=== PATIENT | male | born 1935 | race Caucasian/White ===

== ENCOUNTER → 2017-12-03 09:37 | Outpatient (CLI) | payer MEDICARE ==
[2014-12-09 12:59] VITALS: BMI 23.8
[~2017-12-03 09:37] MED LIST: ALDACTONE25 MG PO; ASPIRIN325 MG PO; BETAPACE 80 MG80 MG PO; CALTRATE-600600 MG PO; CORDARONE200 MG PO; ESTER-C 500 MG1 TAB PO; FOLIC ACID1 MG; HEMOCYTE PLUS1 CAP PO; LEVOTHROID25 MCG PO; LEVOTHROID75 MCG PO; LOPRESSOR25 MG PO; TEKTURNA300 MG PO; VITAMIN B-121000 MC3 OR; XARELTO15 MG PO; ZINC
== END | disposition home or self-care (01) ==
LOC: D.CT 09:37
DX: M54.5 Low back pain (principal)

== ENCOUNTER → 2018-11-01 11:53 | Outpatient (CLI) | payer MEDICARE ==
[2014-12-09 12:59] VITALS: BMI 23.8
== END | disposition home or self-care (01) ==
LOC: D.HCCARDIO 11:53
PROVIDERS: ATTEND Family Medicine
DX: I25.10 Atherosclerotic heart disease of native coronary artery without angina pectoris (principal)

== ENCOUNTER 2018-11-25 10:54 | Outpatient (CLI) | payer MEDICARE ==
[~2018-11-25] VITALS: Ht 185.4 cm; Wt 84.1 kg
--- NOTE | ~2018-11-25 | HEMODYNAMI ---
PATIENT:ZIGGY HORTA MEDICAL RECORD: [id number] : 33 LOCATION:[facility] ADMISSION DATE: 11/25/18 Generatedon:11/25/201814:03 Patient name: ZIGGY HORTA Patient #: [id number] SSN: : 1935 Date of study: 11/25/2018 Page: Of Hemodynamic Procedure Report Patient Data Patient Demographics Procedure consent was obtained First Name: ZIGGY Gender: Male Last Name: RULA : 1935 Middle Initial: KATTY Age: 82 year(s) Patient #: [id number] Race: Additional ID: [id number] Contact details [address]: [address] [place] [address] State: [place] City: [place] Zip code: [address] Past Medical History Allergies Allergen Reaction Date Comments Reported Codeine 12/09/2014 Admission Admission Data Admission Date: 11/25/2018 Admission Time: 10:54 Procedure Procedure Types Cath Procedure Diagnostic Procedure LHC LHC w/Coronaries w/Grafts Sedation Charges Moderate Sedation up to 15 minutes Procedure Description Procedure Date Procedure Date: 11/25/2018 Procedure Start Time: 13:40 Procedure End Time: 14:03 Procedure Staff Name Function Otto Rizo MD Performing Physician Santi Duff RN Nurse Nadeem Carrillo RT Monitor Sobeida Toribio RT Scrub Vinita Swan RN Clinical Laboratory Aides Teacher Ashley Nation RT Monitor Procedure Data Cath Procedure Fluoroscopy Diagnostic fluoroscopy Total fluoroscopy Time: 7.2 time: 7.2 min min Diagnostic fluoroscopy Total fluoroscopy dose: dose: 1088 mGy 1088 mGy Contrast Material Contrast Material Type Amount (ml) Isovue 300 95 Entry Location Entry Primary Successful Side Size Upsize Upsize Entry Closure Succes sful Closure Location (Fr) 1 (Fr) 2 (Fr) Remarks Device Remarks Femoral Right 5 Fr Exoseal artery Estimated blood loss: 5 ml Diagnostic catheters Device Type Used For End Catheter Placement DIAGNOSTIC JL 4.0 5Fr Left Coronary catheter ([id number]) Angiography DIAGNOSTIC AR MOD 5Fr Right Coronary Catheter ([id number]) Angiography DIAGNOSTIC AR MOD 5Fr SVG Angiography Catheter ([id number]) DIAGNOSTIC AL1 5Fr Right Coronary catheter ([id number]) Angiography DIAGNOSTIC IM 5Fr Internal mammary catheter ([id number]) arteriography DIAGNOSTIC Pigtail 5Fr Aortic Root catheter ([id number]) Angiography DIAGNOSTIC Pigtail 5Fr LV Angiography catheter ([id number]) Procedure Complications No complications Procedure Medications Medication Administration Route Dosage Oxygen etCO2 Nasal cannula 2 l/min Heparin Flush Bag added to field 2 bags (1000units/500ml NS) 0.9% NaCl I.V. 100 ml/hr Lidocaine 2% added to field 20 Versed I.V. 1 mg Fentanyl I.V. 50 mcg Versed I.V. 1 mg Fentanyl I.V. 50 mcg Hemodynamics Rest Heart Rate: 48 (bpm) Snapshots Pre Cath Intra NCS Post Cath Vital Signs Time Heart Resp SPO2 etCO2 NIBP (mmHg) Rhythm Pain Sedation Rate (ipm) (%) (mmHg) Status Level (bpm) 13:32:54 60 17 98 22 137/76(110) NSR 0 (11) 10(A) , No pain 13:37:02 59 14 99 21 136/78(115) NSR 0 (11) 10(A) , No pain 13:41:05 60 10 98 20 121/87(104) NSR 0 (11) 10(A) , No pain 13:45:09 61 13 96 1.5 104/74(83) NSR 0 (11) 9(A) , No pain 13:49:56 64 14 97 48.7 141/81(113) NSR 0 (11) 9(A) , No pain 13:56:31 64 14 96 52.5 142/93(113) NSR 0 (11) 9(A) , No pain 14:00:37 67 16 97 41.2 142/87(134) NSR 0 (11) 10(A) , No pain Medications Time Medication Route Dose Verified Delivered Reason Notes Effe ctiveness by by 13:32:45 Oxygen etCO2 2 Otto Santi Per Nasal l/min Darrius Duff RN physician cannula 13:32:55 Heparin Flush added 2 Otto Santi used for Bag to bags Darrius Duff linoleum tile floor layer (1000units/500ml field NS) 13:33:03 0.9% NaCl I.V. 100 Otto Santi Per ml/hr Darrius Duff RN physician 13:33:14 Lidocaine 2% added 20ml Otto Santi used for to vial Darrius Duff RN procedure field 13:38:39 Versed I.V. 1 mg Otto Vinita for Darrius Swan sedation RN 13:38:45 Fentanyl I.V. 50 Otto [place]init[place] for mcg Darrius Swan sedation RN 13:43:11 Versed I.V. 1 mg Otto Vinita for Darrius Swan sedation RN 13:43:18 Fentanyl I.V. 50 Otto [place]init[place] for mcg Darrius Swan sedation coil former Log Time Note 13:05:50 Sanit Duff RN sent for patient. Start room use. 13:23:51 Time tracking: Regular hours (M-F 7:00 - 5:00) 13:23:54 Plan of Care:Hemodynamics will remain stable., Cardiac rhythm will remain stable., Comfort level will be maintained., Respiratory function will remain adequate., Patient/ family verbilizes understanding of procedure., Procedure tolerated without complication., Recovers from procedure without complications.. 13:24:12 Patient received from Pre/Post Procedure Room to [facility] 2 Alert and oriented. Tansferred to table in Supine position. 13:24:13 Warm blankets applied, and alejandra hugger turned on for patient comfort. 13:24:13 Correct patient and procedure confirmed by team. 13:24:14 Signed procedure consent form obtained from patient. 13:24:15 ECG and BP/O2 sat monitors applied to patient. 13:31:45 Vital chart was started 13:32:45 Oxygen 2 l/min etCO2 Nasal cannula was administered by Santi Duff RN; Per physician; 13:32:55 Heparin Flush Bag (1000units/500ml NS) 2 bags added to field was administered by Santi Duff RN; used for procedure; 13:33:03 0.9% NaCl 100 ml/hr I.V. was administered by Santi Duff RN; Per physician; 13:33:14 Lidocaine 2% 20ml vial added to field was administered by Santi Duff RN; used for procedure; 13:35:33 Baseline sample Acquired. 13:35:38 Rhythm: sinus rhythm 13:35:40 Full Disclosure recording started 13:35:47 H&P Date Dictated: 11/12/2018 Within 30 days and on chart., H&P Addendum completed by physician on day of procedure. (MUST COMPLETE FOR ALL OUTPATIENTS). 13:35:49 Pre-procedure instructions explained to patient. 13:35:50 Pre-op teaching completed and patient verbalized understanding. 13:35:51 Family in waiting room. 13:35:53 Patient NPO since Midnight. 13:35:54 Is the patient allergic to Iodine/contrast media? Yes. 13:35:59 Is patient on blood thinner?No 13:36:00 Patient diabetic? No. 13:36:02 Previous problem with sedation/anesthesia? No ? 13:36:04 Snore? Yes 13:36:05 Sleep apnea? No 13:36:06 Deviated septum? No 13:36:07 Opens mouth fully? Yes 13:36:07 Sticks out tongue? Yes 13:36:10 Airway obstruction? No ? 13:36:18 Dentures? Yes IN 13:36:26 Pre procedure: right dorsailis pedis pulse 1+ Palpable, but thready & weak; easily obliterated 13:36:29 Patient pain scale 0/10 ?. 13:36:33 IV patent on arrival in left forearm with 0.9% NaCl at [facility]. 13:36:48 Lab results completed and on chart. 13:36:50 Right groin area was prepped with chlora-prep and draped in sterile fashion 13:36:51 Alarms reviewed by R. N. 13:36:52 Sharps counted by scrub and verified by R.N. 13:36:53 --------ALL STOP TIME OUT------ 13:36:54 Final Timeout: patient, procedure, and site verified with staff and physician. All members of the team are in agreement. 13:36:55 Right groin site verified by team. 13:36:59 Maximum allowable Isovue 300 dose 300ml. Physician notified. (300ml for normal creatinines. For patients with creatinine of 1.7 or higher multiply weight(kg) x 5 divided by creatinine.) 13:37:02 Fire Safety Assessment: A--An alcohol-based skin anteseptic being used preoperatively., C--Open oxygen or nitrous oxide is being used., D--An ESU, laser, or fiber-optic light is being used. 13:37:04 Physical assessment completed. ASA score P 2 - A patient with mild systemic disease as per Otto Rizo MD. 13:37:07 Sedation plan: IV Moderate Sedation Medication:Versed, Fentanyl 13:37:59 Use device set Femoral Dx 13:38:00 Nadeem Carrillo RT(R) was relieved by Ashley Nation RT(R) as monitoring person 13:38:00 ACIST Syringe (12052) opened to sterile field. 13:38:00 Bag Decanter (2002S) opened to sterile field. 13:38:00 Medline Cath Pack ([id number]) opened to sterile field. 13:38:01 DIAGNOSTIC WIRE .035 260cm J wire (860589) opened to sterile field. 13:38:02 ACIST Hand Control (46623) opened to sterile field. 13:38:03 ACIST Manifold (86893) opened to sterile field. 13:38:04 Tegaderm 4 x 4 (1626W) opened to sterile field. 13:38:05 SHEATH 5FR [place] (CRU111) opened to sterile field. 13:38:39 Versed 1 mg I.V. was administered by Vinita Swan RN; for sedation; 13:38:45 Fentanyl 50 mcg I.V. was administered by Vinita Swan RN; for sedation; 13:40:54 Procedure started. 13:40:57 Local anesthetic to right femoral artery with Lidocaine 2% by Otto Rizo MD.INITIAL ACCESS ONLY 13:41:25 A 5 Fr sheath was inserted into the Right Femoral artery 13:43:11 Versed 1 mg I.V. was administered by Vinita Swan RN; for sedation; 13:43:18 Fentanyl 50 mcg I.V. was administered by Vinita Swan RN; for sedation; 13:45:25 A DIAGNOSTIC JL 4.0 5Fr catheter ([id number]) was advanced over the wire and used for Left Coronary Angiography. 13:46:15 Catheter removed. 13:46:51 A DIAGNOSTIC AR MOD 5Fr Catheter (128255U) was advanced over the wire and used for Right Coronary Angiography. UNABLE TO CANNULATE 13:49:16 A DIAGNOSTIC AR MOD 5Fr Catheter (633441L) was advanced over the wire and used for SVG Angiography.TO CIRC 13:49:45 Catheter removed. 13:51:26 A DIAGNOSTIC AL1 5Fr catheter (297584P) was advanced over the wire and used for Right Coronary Angiography. 13:53:04 Catheter removed. 13:54:23 A DIAGNOSTIC IM 5Fr catheter (431287S) was advanced over the wire and used for Internal mammary arteriography.TO LAD 13:55:20 Catheter removed. 13:55:32 A DIAGNOSTIC Pigtail 5Fr catheter (267528V) was advanced over the wire and used for Aortic Root Angiography. 13:57:15 Zero performed for pressure channel P1 13:59:09 A DIAGNOSTIC Pigtail 5Fr catheter (457639Y) was advanced over the wire and used for LV Angiography.UNABLE TO CROSS VALVE 13:59:14 Catheter removed. 13:59:16 EXOSEAL 5Fr (EX500) opened to sterile field. 13:59:43 Sheath removed intact; hemostasis achieved with Exoseal to the Right Femoral artery. 13:59:45 Procedure ended.(Physican Out) 13:59:56 Fluoroscopy time 07.20 minutes. 14:00:00 Flurop Dose total: 1088 14:00:00 Fluoroscopy dose: 1088 mGy 14:00:04 Contrast amount:Isovue 300 95ml. 14:00:05 Sharps counted by scrub and verified by R.N. 14:00:07 Insertion/operative site no bleeding no hematoma. 14:00:10 Post-op/insertion site Right Femoral artery dressed using a 4 x 4 and Tegaderm. 14:00:13 Post right femoral artery:stable, clean and dry 14:00:14 Post Procedure Pulses reassessed and unchanged 14:00:19 Post-procedure physical assessment completed. ASA score P 2 - A patient with mild systemic disease as per Otto Rizo MD. 14:00:21 Post procedure rhythm: unchanged. 14:00:23 Estimated blood loss: 5 ml 14:00:24 Post procedure instruction explained to patient.Patient verbalizes understanding. 14:00:25 Patient needs reinforcement of post procedure teaching. 14:00:29 Procedure Complication : No complications 14:00:33 See physician's report for complete and final results. 14:00:42 Procedure type changed to Cath procedure, Diagnostic procedure, LHC, LHC w/Coronaries w/Grafts, Sedation Charges, Moderate Sedation up to 15 minutes 14:01:15 Procedure and supply charges have been captured, reviewed, submitted and are correct. 14:02:52 Vital chart was stopped 14:02:54 Report given to Pre/Post Procedure Room. 14:02:57 Patient transfered to Pre/Post Procedure Room with Stretcher. 14:03:05 Procedure ended. 14:03:05 Full Disclosure recording stopped 14:03:08 End room use (Document Last) Device Usage Item Name Manufacture Quantity Catalog Hospital Part Current Minimal L ot# / Number Charge Number Stock Stock Serial# Code ACIST Acist 1 85500 235956 [id number] [id number] 20 Syringe Medical (40615) Systems Inc Bag Microtek 1 875272 63308 [id number] 5 Decanter Medical Inc. () Medline Medline 1 [id number] 170589 59508 645434 5 Cath Pack ([id number]) DIAGNOSTIC St Kenny 1 048992 610230 189987 148405 30 WIRE .035 260cm J wire (280356) ACIST Hand Acist 1 77088 657150 108887 411043 5 Control Medical (12784) Systems Inc ACIST Acist 1 92344 706306 179452 911298 5 Manifold Medical (47856) Systems Inc Tegaderm 4 3M 1 1626W 827376 270636 348276 5 x 4 (1626W) SHEATH 5FR Terumo 1 CBZ590 351036 079170 048778 5 [place] (MEZ223) DIAGNOSTIC Cardinal 1 373863D 792016 406641 356867 10 JL 4.0 5Fr Health catheter (200889P) DIAGNOSTIC Cardinal 1 [id number] 155846 798817 944747 15 AR MOD 5Fr Health Catheter (115649A) DIAGNOSTIC Cardinal 1 165645D 995912 033658 937869 15 AL1 5Fr Health catheter (000944Y) DIAGNOSTIC Cardinal 1 [id number] 264565 136236 433695 5 IM 5Fr Health catheter (552307E) DIAGNOSTIC Cardinal 1 570907G 801257 819041 070913 5 Pigtail 5Fr Health catheter (658196A) EXOSEAL 5Fr Cardinal 1 EX500 292307 644804 956841 10 (EX500) Health Signature Audit [place] Stage Time Signature Unsigned Intra-Procedure 11/25/2018 Ashley 2:03:28 PM Counts RT(R) Signatures Monitor : Nadeem Carrillo RT Signature : Date : Time : Monitor : Ashley Signature : Counts RT Date : Time : [facility] [address] [place] [address] [facility] [id number]
[2018-11-25] MEDS ORDERED: BETAPACE 120 M120 MG PO (11:05)
[2018-11-25] MEDS ORDERED: OS-CAL500 MG PO (11:06)
[2018-11-25 11:15] VITALS: BP 125/86; Ht 185.4 cm; Wt 84.1 kg
[2018-11-25 11:43] LABS: BASOPHILS 0.2 % (0-2); EOSINOPHILS 4.4 % (0-7); HEMATOCRIT 40.2 % (42.0-54.0); HEMOGLOBIN 14.1 g/dL (13.5-17.5); IMMATURE GRANULOCYTES 0.3 % (0-5); LYMPHOCYTES 13.3 % (15-50); MCHC 35.1 g/dL (31.0-37.0); MCV 96.9 fL (80.0-100.0); MEAN PLATELET VOLUME 9.7 fL (7.4-10.4); MONOCYTES 8.5 % (2-11); NEUTROPHILS 73.3 % (40-80); RBC 4.15 10x6/uL (4.20-6.10); RDW 13.5 % (11.5-14.5); WBC 9.6 10x3/uL (4.8-10.8)
[2018-11-25 11:52] LABS: ANION GAP 8.5 mmol/L (8-16); CALCIUM 9.3 mg/dL (8.5-10.1); CARBON DIOXIDE 30.8 mmol/L (21.0-32.0); CREATININE - SERUM 1.1 mg/dL (0.6-1.3); POTASSIUM - SERUM 4.3 mmol/L (3.5-5.1)
[2018-11-25 11:57] LABS: PLATELET COUNT 262 10x3/uL (130-400)
--- NOTE | 2018-11-25 14:20 | NUR ---
PATIENT ARRIVED TO ROOM 7. AT BEDSIDE, PHYSICIAN UPDATED FAMILY. VSS ON 2L NC. PATIENT DENIES ANY PAIN, NUMBNESS, OR TINGLING.
--- NOTE | 2018-11-25 14:35 | NUR ---
PATIENT RESTING, PRESENT AT BEDSIDE. VSS ON 2L NC. RIGHT GROIN DRESSING IS CDI, NO S/S OF BLEEDING OR HEMATOMA. NO C/O PAIN, NUMBNESS, OR TINGLING. NO N/V.
--- NOTE | 2018-11-25 15:05 | NUR ---
PATIENT INTERMITTENTLY RESTING, VSS ON 2L NC. RIGHT GROIN DRESSING IS CDI, NO S/S OF BLEEDING OR HEMATOMA. NO C/O PAIN, NUMBNESS, OR TINGLING. TOLERATING PO FLUIDS, NO N/V.
--- NOTE | 2018-11-25 15:35 | NUR ---
PATIENT INTERMITTENTLY RESTING, VSS ON 1L NC. HEAD OF BED AT 30 DEGREES, RIGHT GROIN DRESSING IS CDI, NO S/S OF BLEEDING OR HEMATOMA. NO C/O PAIN, NUMBNESS, OR TINGLING.
--- NOTE | 2018-11-25 15:50 | NUR ---
HEAD OF BED ELEVATED TO 60 DEGREES, RIGHT GROIN DRESSING IS CDI, NO S/S OF BLEEDING OR HEMATOMA. PATIENT EATING TURKEY SANDWICH AND DRINKING SODA, NO N/V.
--- NOTE | 2018-11-25 16:10 | NUR ---
IV REMOVED. EDUCATION REGARDING DISCHARGE INSTRUCTIONS AND MEDICATIONS GIVEN TO PATIENT AND SPOUSE, BOTH VOICE UNDERSTANDING. VSS ON ROOM AIR. RIGHT GROIN DRESSING IS CDI, NO S/S OF BLEEDING OR HEMATOMA. NO C/O PAIN, NUMBNESS, OR TINGLING. NO N/V.
--- NOTE | 2018-11-25 16:20 | NUR ---
PATIENT TRANSPORTED VIA WHEELCHAIR TO BATHROOM, VOIDED WITHOUT DIFFICULTY. PATIENT TRANSPORTED TO CAR WITH SPOUSE DRIVING, ALL BELONGINGS WITH PATIENT.
== END 2018-11-25 16:20 ==
LOC: D.CATH 10:54
PROVIDERS: ATTEND Internal Medicine Cardiovascular Disease
DX: I25.110 Atherosclerotic heart disease of native coronary artery with unstable angina pectoris (principal); I35.1 Nonrheumatic aortic (valve) insufficiency; Z95.1 Presence of aortocoronary bypass graft; Z01.812 Encounter for preprocedural laboratory examination

== ENCOUNTER 2020-01-05 10:55 | Outpatient (CLI) | payer MEDICARE ==
[~2020-01-05] VITALS: Ht 185.4 cm; Wt 86.4 kg
--- NOTE | ~2020-01-05 | HEMODYNAMI ---
PATIENT:ZIGGY HORTA MEDICAL RECORD: [id number] : 33 LOCATION:[facility] ADMISSION DATE: 01/05/20 Generatedon:01/05/202013:34 Patient name: ZIGGY HORTA Patient #: [id number] SSN: : 1935 Date of study: 01/05/2020 Page: Of Hemodynamic Procedure Report Patient Data Patient Demographics Procedure consent was obtained First Name: ZIGGY Gender: Male Last Name: RULA : 1935 Middle Initial: KATTY Age: 84 year(s) Patient #: [id number] Race: Additional ID: [id number] Contact details Address: [address] [place] [address] State: [place] City: [place] Zip code: [address] Past Medical History Allergies Allergen Reaction Date Comments Reported Codeine 12/09/2014 Codeine 01/05/2020 Admission Admission Data Admission Date: 01/05/2020 Admission Time: 10:55 Height (in.): 72.83 BSA: 2.1 (m2) Height (cm.): 185 BMI: 25.13 (kg/m2) Weight (lbs.): 189.6 Weight (kg.): 86 Procedure Procedure Types Cath Procedure Diagnostic Procedure Cardioversion External Procedure Description Procedure Date Procedure Date: 01/05/2020 Procedure Start Time: 13:09 Procedure End Time: 13:30 Procedure Staff Name Function Otto Rizo MD Performing Physician Alisha Chandler RT Monitor Santi Duff RN Nurse Norbert Delgado CRNA Additional personnel Procedure Data Cath Procedure Fluoroscopy Diagnostic fluoroscopy Total fluoroscopy Time: 0 time: 0 min min Diagnostic fluoroscopy Total fluoroscopy dose: 0 dose: 0 mGy mGy Estimated blood loss: 0 ml Procedure Complications No complications Hemodynamics Rest BSA: 2.1 (m2) O2 Consumption: Estimated: 232.36 (ml/min) O2 Consumption indexed: Estimated:110.65 (ml/min/m) Heart Rate: 62 (bpm) Snapshots Pre Cath Intra NCS Post Cath Vital Signs Time Heart Resp SPO2 etCO2 NIBP (mmHg) Rhythm Pain Sedation Rate (ipm) (%) (mmHg) Status Level (bpm) 12:58:18 63 12 100 34.7 No Cuff NSR 0 (11) 10(A) , No pain 12:58:45 61 14 100 27.9 Aborted NSR 0 (11) 10(A) , No pain 13:03:03 57 13 100 33.9 140/83(108) NSR 0 (11) 10(A) , No pain 13:07:15 60 14 99 33.9 147/90(114) NSR 0 (11) 10(A) , No pain 13:12:14 15 99 30.9 Measuring NSR 0 (11) 10(A) , No pain 13:12:59 63 19 81 12.8 127/77(102) NSR 0 (11) 10(A) , No pain 13:17:07 64 16 98 8.3 132/80(109) NSR 0 (11) 10(A) , No pain 13:21:15 68 18 99 27.9 122/85(110) NSR 0 (11) 10(A) , No pain 13:25:23 67 16 99 9.8 117/72(96) NSR 0 (11) 10(A) , No pain 13:29:30 67 16 98 10.5 111/66(91) NSR 0 (11) 10(A) , No pain Procedure Log Time Note 12:45:06 Informed consent obtained and on chart 12:45:26 Procedure Status Cardioversion. 12:45:27 Time tracking: Regular hours (M-F 7:00 - 5:00) 12:45:29 Plan of Care:Hemodynamics will remain stable., Cardiac rhythm will remain stable., Comfort level will be maintained., Respiratory function will remain adequate., Patient/ family verbilizes understanding of procedure., Procedure tolerated without complication., Recovers from procedure without complications.. 12:45:34 Alisha Chandler RT(R) sent for patient. Start room use. 12:46:00 H&P Date Dictated: 12/23/2019 Within 30 days and on chart., H&P Addendum completed by physician on day of procedure. (MUST COMPLETE FOR ALL OUTPATIENTS). 12:46:26 Patient allergic to Codeine 12:57:10 Patient arrived from Pre/Post Procedure Room to CCL 2. Patient remains on bed/stretcher for procedure. 12:57:11 Warm blankets applied, and alejandra hugger turned on for patient comfort. 12:57:13 Correct patient and procedure confirmed by team. 12:57:14 ECG and BP/O2 sat monitors applied to patient. 12:57:29 Vital chart was started 12:57:31 Baseline sample Acquired. 12:57:35 Rhythm: paced, atrial fibrillation 12:57:37 Full Disclosure recording started 12:57:38 Pre-procedure instructions explained to patient. 12:57:38 Pre-op teaching completed and patient verbalized understanding. 12:57:40 Family in patients room. 12:57:42 Patient NPO since Midnight. 12:57:43 Is the patient allergic to Iodine/contrast media? No. 12:57:44 Is patient on blood thinner?Yes 12:57:48 ACC The patient was administered the following blood thiners within the last 24 hours: Eliquis 12:57:50 Patient diabetic? No. 12:58:00 Previous problem with sedation/anesthesia? No ? 12:58:01 Snore? Yes 12:58:02 Sleep apnea? No 12:58:03 Deviated septum? No 12:58:03 Opens mouth fully? Yes 12:58:10 Sticks out tongue? Yes 12:58:14 Airway obstruction? No ? 12:58:28 Dentures? No ? 12:58:41 IV patent on arrival in left hand with 0.9% NaCl at [facility]. 12:58:44 Lab results completed and on chart. 12:58:46 Alarms reviewed by Silvia Pena 12:59:02 Quick Combo opened to sterile field. 12:59:57 Patient Weight : 189.6 lbs 13:00:00 Patient Height : 72.83 inches 13:04:14 Norbert Delgado CRNA present and monitoring patient for TIVA. 13:08:18 --------ALL STOP TIME OUT------ 13:08:18 Final Timeout: patient, procedure, and site verified with staff and physician. All members of the team are in agreement. 13:08:22 Fire Safety Assessment: C--Open oxygen or nitrous oxide is being used. 13:08:25 Physical assessment completed. ASA score P 2 - A patient with mild systemic disease as per Otto Rizo MD. 13:08:28 Sedation plan: IV Moderate Sedation Medication:Propofol 13::30 ------Cardioversion------ 13:09:54 Procedure started. 13:10:01 Quick combo pads placed on patients chest and back. 13:12:04 Defibrillator synced and charged to 200 Joules. 13:12:15 Shock delivered. 13:13:03 Unsuccessful cardioversion. 13:21:17 Defibrillator synced and charged to 300 Joules. 13:21:27 Shock delivered. 13:22:05 Patient cardioverted to sinus rhythm , paced. 13:26:20 Procedure ended.(Physican Out) 13:26:59 Fluoroscopy time 00.00 minutes. 13:27:01 Fluoroscopy dose: 0 mGy 13:27:01 Flurop Dose total: 0 13:27:03 Dose Area Product 0 mGy/cm. 13:27:39 Post-procedure physical assessment completed. ASA score P 2 - A patient with mild systemic disease as per Otto Rizo MD. 13:27:42 Estimated blood loss: 0 ml 13:29:58 Post procedure instruction explained to patient.Patient verbalizes understanding. 13:29:59 Patient needs reinforcement of post procedure teaching. 13:30:16 Procedure and supply charges have been captured, reviewed, submitted and are correct. 13:30:19 Procedure Complication : No complications 13:30:22 Vital chart was stopped 13:30:27 Operative report dictated upon procedure completion. 13:30:28 See physician's report for complete and final results. 13:30:30 Report given to Pre/Post Procedure Room. 13:30:33 Patient transfered to Pre/Post Procedure Room with Bed. 13:30:36 Procedure ended. 13:30:36 Full Disclosure recording stopped 13:30:42 End room use (Document Last) 13:33:33 End room use (Document Last) 13:34:01 End room use (Document Last) Device Usage Item Manufacture Quantity Catalog Hospital Part Current Minimal Lot# / Name Number Charge Number Stock Stock Yong whitney# Code Petrabytes 1 [id number] 5 Combo Signature Audit [place] Stage Time Signature Unsigned Intra-Procedure 01/05/2020 Alisha Chandler 1:33:33 PM RT(R) Intra-Procedure 01/05/2020 Santi Duff 1:34:01 PM RN Intra-Procedure 01/05/2020 Otto Rizo MD 1:34:25 PM Signatures Performing Physician : Signature : Otto Rizo MD Date : Time : Monitor : Alisha Chandler Signature : RT Date : Time : Nurse : Santi Duff RN Signature : Date : Time : [address] [place] [address]
[~2020-01-05 10:55] MED LIST changes: +ASCORBIC ACID500 MG PO; +BETAPACE 120 M120 MG PO; -ESTER-C 500 MG1 TAB PO; -LEVOTHROID25 MCG PO; +OS-CAL500 MG PO; +VITAMIN B-121000 MCG PO
[2020-01-05 11:44] VITALS: BP 124/75; Ht 185.4 cm; Wt 86.4 kg
[2020-01-05] MEDS ORDERED: ELAVIL25 MG PO (11:44)
[2020-01-05] MEDS ORDERED: ELIQUIS5 MG PO (11:45)
[2020-01-05] MEDS ORDERED: BAYER CHEWABLE81 MG PO (11:45)
[2020-01-05 12:12] LABS: HEMATOCRIT 41.6 % (42.0-54.0); HEMOGLOBIN 14.1 g/dL (13.5-17.5); LYMPHOCYTES 20.8 % (15-50); MCH 34.1 pg (26.0-34.0); MCHC 33.9 g/dL (31.0-37.0); MCV 100.5 fL (80.0-100.0); MEAN PLATELET VOLUME 8.8 fL (7.4-10.4); NEUTROPHILS 61.8 % (40-80); PLATELET COUNT 216 10x3/uL (130-400); RBC 4.14 10x6/uL (4.20-6.10); RDW 13.8 % (11.5-14.5); WBC 5.5 10x3/uL (4.8-10.8)
[2020-01-05 12:31] LABS: INR 1.36 (0.85-1.17); PROTIME 16.7 SECONDS (11.6-15.0)
[2020-01-05 12:33] LABS: ANION GAP 10.5 mmol/L (8-16); CALCIUM 9.2 mg/dL (8.5-10.1); CREATININE - SERUM 1.1 mg/dL (0.6-1.3); POTASSIUM - SERUM 4.5 mmol/L (3.5-5.1)
--- NOTE | 2020-01-05 13:43 | NUR ---
PT ARRIVED BY STRETCHER. PLACED ON MONITORS. ASSESSMENT COMPLETED. VSS AT THIS TIME. PT IN NSR. FAMILY AT BEDSIDE. CALL LIGHT WITHIN REACH.
--- NOTE | 2020-01-05 13:53 | NUR ---
PT SET UP WITH SANDWICH TRAY AND DRINK. DENIES NAUSEA/PAIN AT THIS TIME.
--- NOTE | 2020-01-05 13:59 | NUR ---
PT SITTING UP AND EATING LUNCH. DENIES NAUSEA/PAIN. HR 68 NSR. BP 111/65. FAMILY AT BEDSIDE.
--- NOTE | 2020-01-05 14:30 | NUR ---
VSS. HR STABLE AND STILL IN NSR. PIV D/C'D WITH CATH TIP INTACT. TOLERATED WELL. PT INSTRUCTED TO GET UP AND DRESSED AT THIS TIME.
--- NOTE | 2020-01-05 14:40 | NUR ---
DISCUSSED DISCHARGE INSTRUCTIONS WITH PT AND PT'S FAMILY. THEY VOICED UNDERSTANDING.
--- NOTE | 2020-01-05 14:45 | NUR ---
PT AMBULATED TO RESTROOM. VOIDED WITHOUT DIFFICULTY. STEADY GAIT NOTED. PT TAKEN DOWN TO VEHICLE BY WHEELCHAIR. NO S/S OF DISTRESS NOTED. ALL BELONGINGS AND PAPERWORK WITH .
== END 2020-01-05 14:45 | disposition home or self-care (01) ==
LOC: D.CATH 10:55
PROVIDERS: ATTEND Internal Medicine Cardiovascular Disease
DX: I48.91 Unspecified atrial fibrillation (principal); Z95.0 Presence of cardiac pacemaker; I10 Essential (primary) hypertension; E03.9 Hypothyroidism, unspecified; I25.10 Atherosclerotic heart disease of native coronary artery without angina pectoris; I47.1 Supraventricular tachycardia; R06.09 Other forms of dyspnea; R00.2 Palpitations

== ENCOUNTER → 2020-02-12 10:25 | Outpatient (CLI) | payer MEDICARE ==
[2020-01-05 11:44] VITALS: BMI 25.1
[~2020-02-12 10:25] MED LIST changes: +BAYER CHEWABLE81 MG PO; +ELAVIL25 MG PO; +ELIQUIS5 MG PO
== END | disposition home or self-care (01) ==
LOC: D.HCCARDIO 10:25 → D.HCCECHO 11:00
PROVIDERS: ATTEND Internal Medicine Cardiovascular Disease
DX: I25.10 Atherosclerotic heart disease of native coronary artery without angina pectoris (principal)

== ENCOUNTER 2020-03-04 07:33 | Day surgery (SDC) | payer MEDICARE ==
[~2020-03-04] VITALS: Ht 185.4 cm; Wt 92.8 kg
--- NOTE | ~2020-03-04 | HEMODYNAMI ---
PATIENT:ZIGGY HORTA MEDICAL RECORD: [id number] : 33 LOCATION:[facility] ADMISSION DATE: 03/04/20 Generatedon:03/04/202010:33 Patient name: ZIGGY HORTA Patient #: [id number] : 1935 Date of study: 03/04/2020 Page: Of Hemodynamic Procedure Report Patient Data Patient Demographics Procedure consent was obtained First Name: ZIGGY Gender: Male Last Name: RULA : 1935 Middle Initial: KATTY Age: 84 year(s) Patient #: [id number] Race: SSN: [id number] Additional ID: [id number] Contact details Address: [address] [place] [address] State: [place] City: [place] Zip code: [address] Past Medical History Allergies Allergen Reaction Date Comments Reported Codeine 12/09/2014 Codeine 01/05/2020 Other allergy 03/04/2020 CODEINE Admission Admission Data Admission Date: 03/04/2020 Admission Time: 7:33 Arrival Date: 03/04/2020 Arrival Time: 0:00 Admit Source: Other Insurance Payor: Medicare [facility] #: [id number] Height (in.): 72.83 BSA: 2.16 (m2) Height (cm.): 185 BMI: 26.88 (kg/m2) Weight (lbs.): 202.83 Weight (kg.): 92 Lab Results Lab Result Date: 03/04/2020 Lab Result Time: 0:00 Biochemistry Name Units Result Min Max BUN mg/dl 18 --(---*)-- 7 18 Creatinine mg/dl 1.2 --(---*)-- 0.6 1.3 eGFR ml/min 61.63371 *-(----)-- 90 120 NONAFRICAN CBC Name Units Result Min Max Hemoglobin g/dl 13.8 --(*---)-- 13.5 17.5 Procedure Procedure Types Cath Procedure Diagnostic Procedure [facility] w/Coronaries w/Grafts Sedation Charges Moderate Sedation up to 15 minutes Procedure Description Procedure Date Procedure Date: 03/04/2020 Procedure Start Time: 10:09 Procedure End Time: 10:31 Procedure Staff Name Function Otto Rizo MD Performing Physician Palmira Couch RT Monitor Vinita Swan RN Nurse Sheila Dahl RT Scrub Procedure Data Cath Procedure Fluoroscopy Diagnostic fluoroscopy Total fluoroscopy Time: 5.8 time: 5.8 min min Diagnostic fluoroscopy Total fluoroscopy dose: dose: 43.4 mGy 43.4 mGy Contrast Material Contrast Material Type Amount (ml) Isovue 300 79 Entry Location Entry Primary Successful Side Size Upsize Upsize Entry Closure Succes sful Closure Location (Fr) 1 (Fr) 2 (Fr) Remarks Device Remarks Femoral Right 5 Fr Exoseal artery Estimated blood loss: 10 ml Diagnostic catheters Device Type Used For End Catheter Placement MULTIPACK JL 4.0 5Fr Procedure catheter DIAGNOSTIC AR MOD 5Fr Procedure Catheter ([id number]) MULTIPACK Pigtail 5 Fr LV Angiography catheter DIAGNOSTIC IM 5Fr Procedure catheter ([id number]) Procedure Complications No complications Procedure Medications Medication Administration Route Dosage 0.9% NaCl I.V. 100 ml/hr Oxygen etCO2 Nasal cannula 2 l/min Lidocaine 2% added to field 20 Heparin Flush Bag added to field 2 bags (1000units/500ml NS) Versed I.V. 2 mg Fentanyl I.V. 50 mcg Hemodynamics Rest BSA: 2.16 (m2) HGB: 13.8 (g/dl) O2 Consumption: Estimated: 225.51 (ml/min) O2 Co nsumption indexed: Estimated:104.4 (ml/min/m) Heart Rate: 46 (bpm) Pressure Samples Time Site Value (mmHg) Purpose Heart Use Rate(bpm) 10:22 LV 177/6,14 Snapshot 60 Gradients Valve Time Site Site Mean SEP/DFP Peak To Heart Use 1 2 (mmHg) (sec/min) Peak Rate (mmHg) (bpm) Aortic 10:23 LV AO 41 Snapshots Pre Cath Intra NCS Post Cath Vital Signs Time Heart Resp SPO2 etCO2 NIBP (mmHg) Rhythm Pain Sedation Rate (ipm) (%) (mmHg) Status Level (bpm) 9:49:57 61 17 98 39 169/98(151) NSR 0 (11) 10(A) , No pain 9:54:15 60 16 99 21.7 158/88(107) NSR 0 (11) 10(A) , No pain 9:58:27 67 13 97 33.6 161/93(127) NSR 0 (11) 10(A) , No pain 10:02:41 60 12 96 32.3 160/98(134) NSR 0 (11) 10(A) , No pain 10:06:51 65 12 97 36 165/99(123) NSR 0 (11) 10(A) , No pain 10:11:07 59 13 97 37.5 163/98(134) NSR 0 (11) 10(A) , No pain 10:15:21 59 13 97 23.2 163/97(131) NSR 0 (11) 10(A) , No pain 10:20:20 60 13 97 21.7 Measuring NSR 0 (11) 10(A) , No pain 10:20:30 60 13 97 16.7 161/84(120) NSR 0 (11) 10(A) , No pain 10:24:48 59 13 97 27.8 152/84(128) NSR 0 (11) 10(A) , No pain 10:29:43 59 13 97 0 153/89(125) NSR 0 (11) 10(A) , No pain Medications Time Medication Route Dose Verified Delivered Reason Notes Eff ectiveness by by 9:48:58 0.9% NaCl I.V. 100 Otto Vinita used for ml/hr Darrius Swan bridge builder 9:49:04 Oxygen etCO2 2 Otto Vinita used for Nasal l/min Darrius Swan procedure cannula RN 9:49:09 Lidocaine 2% added 20ml Otto Otto for local to vial Darrius Rizo MD anesthetic field 9:49:13 Heparin Flush added 2 Otto Otto used for Bag to bags Darrius Rizo MD procedure (1000units/500ml field NS) 10:06:31 Versed I.V. 2 mg Otto Vinita for Darrius Swan sedation RN 10:06:38 Fentanyl I.V. 50 Otto Vinita for mcg Darrius Swan sedation carpet installer helper Log Time Note 9:41:39 Arrival Date: 03/04/2020 12:00:00 AM 9:42:03 Admit Source: Other 9:42:06 Insurance Payor : Medicare 9:42:17 Patient Height : 72.83 inches 9:42:21 Patient Weight : 202.83 lbs 9:43:03 Lab Result : BUN 18 mg/dl 9:43:03 Lab Result : eGFR NONAFRICAN 61.00263 ml/min 9:43:03 Lab Result : Hemoglobin 13.8 g/dl 9:43:03 Lab Result : Creatinine 1.2 mg/dl 9:43:17 Procedure Status Elective Heart Cath (OP). 9:43:42 Sheila Hesham RT(R) (CV) sent for patient. Start room use. 9:43:48 Time tracking: Regular hours (M-F 7:00 - 5:00) 9:43:53 Plan of Care:Hemodynamics will remain stable., Cardiac rhythm will remain stable., Comfort level will be maintained., Respiratory function will remain adequate., Patient/ family verbilizes understanding of procedure., Procedure tolerated without complication., Recovers from procedure without complications.. 9:43:58 Patient received from Pre/Post Procedure Room to CCL 2 Alert and oriented. Tansferred to table in Supine position. 9:44:01 Signed procedure consent form obtained from patient. 9:44:02 Warm blankets applied, and alejandra hugger turned on for patient comfort. 9:44:03 Correct patient and procedure confirmed by team. 9:44:04 ECG and BP/O2 sat monitors applied to patient. 9:48:49 Vital chart was started 9:48:58 0.9% NaCl 100 ml/hr I.V. was administered by Vinita Swan RN; used for procedure; Verbal order read back and verified. 9:49:04 Oxygen 2 l/min etCO2 Nasal cannula was administered by Vinita Swan RN; used for procedure; Verbal order read back and verified. 9:49:09 Lidocaine 2% 20ml vial added to field was administered by Otto Rizo MD; for local anesthetic; Verbal order read back and verified. 9:49:13 Heparin Flush Bag (1000units/500ml NS) 2 bags added to field was administered by Otto Rizo MD; used for procedure; Verbal order read back and verified. 9:50:31 Baseline sample Acquired. 9:50:35 Rhythm: sinus rhythm 9:50:37 Full Disclosure recording started 9:55:19 H&P Date Dictated: 02/04/2020 Within 30 days and on chart., H&P Addendum completed by physician on day of procedure. (MUST COMPLETE FOR ALL OUTPATIENTS). 9:55:21 Pre-procedure instructions explained to patient. 9:55:23 Family in waiting room. 9:55:26 Patient NPO since Midnight. 9:55:37 Patient allergic to Other allergyCODEINE 9:55:40 Is the patient allergic to Iodine/contrast media? No. 9:55:47 Was the patient premedicated? Yes 9:55:49 Is patient on blood thinner?Yes 9:56:07 ELIQUIS SUNDAY 9:56:11 Patient diabetic? No. 9:56:19 Snore? Unknown 9:56:20 Sleep apnea? No 9:56:27 Dentures? Yes IN TIGHT 9:56:33 Patient pain scale 0/10 ?. 9:56:38 IV patent on arrival in left forearm with 0.9% NaCl at KVO. 9:56:41 Lab results completed and on chart. 9:56:49 Stress Test: yes; abnormal INFERIOR LAT 9:56:54 Right groin area was prepped with chlora-prep and draped in sterile fashion 9:56:59 Alarms reviewed by RJosse N. 9:56:59 Sharps counted by scrub and verified by R.N. 9:57:02 Physician paged 10:03:57 Physician arrived 10:03:58 --------ALL STOP TIME OUT------ 10:03:59 Final Timeout: patient, procedure, and site verified with staff and physician. All members of the team are in agreement. 10:04:07 Right groin site verified by team. 10:04:10 Fire Safety Assessment: A--An alcohol-based skin anteseptic being used preoperatively., C--Open oxygen or nitrous oxide is being used., D--An ESU, laser, or fiber-optic light is being used. 10:04:16 Physical assessment completed. ASA score P 2 - A patient with mild systemic disease as per Otto Rizo MD. 10:04:54 2) 60-89 Mildly reduced kidney function, and other findings (as for stage 1) point to kidney disease. 10:04:57 Maximum allowable contrast dose (3.7 X eGFR X 0.75)169 ml. 10:06:31 Versed 2 mg I.V. was administered by Vinita Swan RN; for sedation; Verbal order read back and verified. 10:06:38 Fentanyl 50 mcg I.V. was administered by Vinita Swan RN; for sedation; Verbal order read back and verified. 10:06:43 Sedation plan: IV Moderate Sedation Medication:Versed, Fentanyl 10:06:48 Use device set Femoral Dx 10:06:51 ACIST Syringe (78013) opened to sterile field. 10:06:51 Bag Decanter (2002S) opened to sterile field. 10:06:51 Medline Cath Pack ([id number]) opened to sterile field. 10:06:53 ACIST Hand Control (00305) opened to sterile field. 10:06:53 ACIST Manifold (50457) opened to sterile field. 10:06:54 DIAGNOSTIC Multipack 5Fr catheter set ([id number]) opened to sterile field. 10:06:57 SHEATH 5FR [place] (OLZ966) opened to sterile field. 10:06:58 EMERALD Guide Wire (519-488) opened to sterile field. 10:09:13 Procedure started. 10:09:22 Local anesthetic to right femoral artery with Lidocaine 2% by Otto Rizo MD.INITIAL ACCESS ONLY 10:09:30 A 5 Fr sheath was inserted into the Right Femoral artery 10:12:10 A MULTIPACK JL 4.0 5Fr catheter was advanced over the wire and used for Procedure. 10:12:13 LCA angiography performed. 10:16:42 A DIAGNOSTIC AR MOD 5Fr Catheter ([id number]) was advanced over the wire and used for Procedure. 10:16:58 RCA angiography performed. 10:17:46 SVG to Circ angiography performed. 10:21:18 A MULTIPACK Pigtail 5 Fr catheter was advanced over the wire and used for LV Angiography. 10:23:01 LV gram done using SAVAGE 10:23:06 EF : 55 % 10:23:24 LV hemodynamics recorded. 10:24:56 A DIAGNOSTIC IM 5Fr catheter ([id number]) was advanced over the wire and used for Procedure. 10:25:06 CAIN to LAD angiography performed. 10:27:00 Catheter removed. 10:27:10 EXOSEAL 5Fr (EX500) opened to sterile field. 10:27:29 Sheath removed intact; hemostasis achieved with Exoseal to the Right Femoral artery. 10:27:31 Procedure ended.(Physican Out) 10:27:57 Fluoroscopy time 05.80 minutes. 10:28:07 Fluoroscopy dose: 43.4 mGy 10:28:07 Flurop Dose total: 43.4 10::28 Dose Area Product 51208 mGy/cm. 10:28:37 Contrast amount:Isovue 300 79ml. 10:28:42 Maximum allowable dose exceeded? No. 10:28:44 Sharps counted by scrub and verified by R.N. 10:28:46 Insertion/operative site no bleeding no hematoma. 10:28:52 Post-op/insertion site Right Femoral artery dressed using a 4 x 4 and Tegaderm. 10:28:56 Post right femoral artery:stable 10:29:05 Post-procedure physical assessment completed. ASA score P 2 - A patient with mild systemic disease as per Otto Rizo MD. 10:29:07 Post procedure rhythm: unchanged. 10:29:10 Estimated blood loss: 10 ml 10:29:12 Post procedure instruction explained to patient.Patient verbalizes understanding. 10:29:26 Procedure type changed to Cath procedure, Diagnostic procedure, LHC, LHC w/Coronaries w/Grafts, Sedation Charges, Moderate Sedation up to 15 minutes 10:30:00 Procedure and supply charges have been captured, reviewed, submitted and are correct. 10:30:44 Procedure Complication : No complications 10:30:48 Vital chart was stopped 10:30:54 [facility] Findings: mild to moderate CAD (<70%) 10:30:57 See physician's report for complete and final results. 10:30:59 Report given to Pre/Post Procedure Room. 10:31:03 Patient transfered to Pre/Post Procedure Room with Stretcher. 10:31:05 Procedure ended. 10:31:05 Full Disclosure recording stopped Device Usage Item Name Manufacture Quantity Catalog Hospital Part Current Minimal L ot# / Number Charge Number Stock Stock Serial# Code ACIST Acist 1 [id number] [id number] 785910 950369 20 Bvents (05290IRIS-RFID Bag Microtek 1 067124 95621 029878 5 Decanter Medical Inc. () Medline Medline 1 [id number] 391560 69997 682190 5 Cath Pack ([id number]) ACIST Hand Acist 1 59771 123594 174419 276270 5 Control Medical (80656) Systems Inc ACIST Acist 1 43173 189309 617913 396366 5 Manifold Medical (12497) Systems Inc DIAGNOSTIC Cardinal 1 [id number] 091382 87326 198941 30 Multipack Health 5Fr catheter set ([id number]) SHEATH 5FR Terumo 1 [id number] 846853 413674 488019 5 [place] (ROF351) EMERALD Cardinal 1 403-822 527153 858561 803477 5 Guide Wire Health (282-560) MULTIPACK Cardinal 1 264468 5 JL 4.0 5Fr Health catheter DIAGNOSTIC Cardinal 1 [id number] 173227 615939 978695 15 AR MOD 5Fr Health Catheter (897679F) MULTIPACK Cardinal 1 789089 5 Pigtail 5 Health Fr catheter DIAGNOSTIC Cardinal 1 [id number] 570839 302968 611834 5 IM 5Fr Health catheter ([id number]) EXOSEAL 5Fr Cardinal 1 EX500 714676 999224 125434 10 (EX500) Health Signature Audit [place] Stage Time Signature Unsigned Intra-Procedure 03/04/2020 Palmira Couch 10:31:29 AM RT(R); Vinita Swan RN; Otto Rizo MD Signatures Performing Physician : Signature : Otto Rizo MD Date : Time : Monitor : Palmira Couch Signature : RT Date : Time : Nurse : Vinita Swan RN Signature : Date : Time : [place] [address] [place] [address]
[2020-03-04] MEDS ORDERED: FUROSEMIDE40 MG PO (08:13)
[2020-03-04] MEDS ORDERED: AMIODARONE HCL200 MG PO (08:14)
[2020-03-04] MEDS ORDERED: AZELASTINE137 MCG/0. NASAL (08:14)
[2020-03-04] MEDS ORDERED: SYNTHROID25 MCG PO (08:15)
[2020-03-04] MEDS ORDERED: GLUCOSAMINE HC500 MG PO (08:16)
[2020-03-04] MEDS ORDERED: CLARITIN 10 MG10 MG PO (08:16)
[2020-03-04] MEDS ORDERED: BAYER CHEWABLE81 MG PO (08:17)
[2020-03-04 08:21] VITALS: BP 155/97; Ht 185.4 cm; Wt 92.8 kg
[2020-03-04 08:45] LABS: BASOPHILS 0.5 % (0-2); EOSINOPHILS 4.5 % (0-7); HEMATOCRIT 41.9 % (42.0-54.0); HEMOGLOBIN 13.8 g/dL (13.5-17.5); IMMATURE GRANULOCYTES 0.5 % (0-5); MCH 35.1 pg (26.0-34.0); MCHC 32.9 g/dL (31.0-37.0); MCV 106.6 fL (80.0-100.0); MEAN PLATELET VOLUME 10.1 fL (7.4-10.4); MONOCYTES 11.7 % (2-11); NEUTROPHILS 59.8 % (40-80); PLATELET COUNT 207 10x3/uL (130-400); RBC 3.93 10x6/uL (4.20-6.10); RDW 14.9 % (11.5-14.5)
[2020-03-04 08:57] LABS: ANION GAP 7.9 mmol/L (8-16); CARBON DIOXIDE 32.4 mmol/L (21.0-32.0); CHOL - HDL RATIO 3.4 ratio (2.3-4.9); CREATININE - SERUM 1.2 mg/dL (0.6-1.3); POTASSIUM - SERUM 4.3 mmol/L (3.5-5.1)
--- NOTE | 2020-03-04 10:42 | NUR ---
PT ARRIVED BY STRETCHER. PLACED ON MONITORS. ASSESSMENT COMPLETED. VSS AT THIS TIME. CALL LIGHT WITHIN REACH. FAMILY AT BEDSIDE. DR. LI ROUNDED AND SPOKE WITH PT'S FAMILY POST PROCEDURE.
--- NOTE | 2020-03-04 10:57 | NUR ---
RIGHT GROIN DRESSING C/D/I. NO S/S OF HEMATOMA NOTED. CALL LIGHT WITHIN REACH. VSS AT THIS TIME. FAMILY AT BEDSIDE. RIGHT PEDAL PULSE PALPABLE AND EXT IS WARM TO TOUCH.
--- NOTE | 2020-03-04 11:30 | NUR ---
RIGHT GROIN DRESSING C/D/I. NO S/S OF HEMATOMA NOTED. CALL LIGHT WITHIN REACH. VSS AT THIS TIME. FAMILY AT BEDSIDE.
--- NOTE | 2020-03-04 12:00 | NUR ---
RIGHT GROIN DRESSING C/D/I. NO S/S OF HEMATOMA NOTED. HEAD OF BED INC TO 30 DEGREES. TOLERATED WELL. VSS AT THIS TIME. FAMILY AT BEDSIDE. DENIES NAUSEA/PAIN.
--- NOTE | 2020-03-04 12:30 | NUR ---
RIGHT GROIN DRESSING C/D/I. NO S/S OF HEMATOMA NOTED. CALL LIGHT WITHIN REACH. CAMELIA Cook WITH [facility] AT BEDSIDE FOR PACEMAKER CHECK. TOLERATED WELL.
--- NOTE | 2020-03-04 12:40 | NUR ---
PIV D/C'D WITH CATH TIP INTACT. TOLERATED WELL. VSS. PT INSTRUCTED TO GET UP AND DRESSED AT THIS TIME. FAMILY AT BEDSIDE TO ASSIST. RIGHT GROIN DRESSING C/D/I. NO S/S OF HEMATOMA NOTED.
--- NOTE | 2020-03-04 12:53 | NUR ---
DISCUSSED DISCHARGE INSTRUCTIONS WITH PT AND PT'S FAMILY. THEY VOICED UNDERSTANDING. PT TO RESTROOM AND VOIDED WITHOUT DIFFICULTY. STEADY GAIT NOTED.
--- NOTE | 2020-03-04 13:00 | NUR ---
RIGHT GROIN DRESSING C/D/I. NO S/S OF HEMATOMA NOTED. PT TAKEN DOWN TO VEHICLE BY WHEELCHAIR. NO S/S OF DISTRESS NOTED. ALL BELONGINGS AND PAPERWORK IN HAND.
== END 2020-03-04 13:00 | disposition home or self-care (01) ==
LOC: D.CATH 07:33
PROVIDERS: ATTEND Internal Medicine Cardiovascular Disease
DX: I25.119 Atherosclerotic heart disease of native coronary artery with unspecified angina pectoris (principal); R94.39 Abnormal result of other cardiovascular function study; Z95.0 Presence of cardiac pacemaker; I10 Essential (primary) hypertension; E03.9 Hypothyroidism, unspecified; I48.91 Unspecified atrial fibrillation; I47.1 Supraventricular tachycardia; R06.09 Other forms of dyspnea; R00.2 Palpitations